=== PATIENT | male | born 1990 | race African-American/Black ===

== ENCOUNTER 2020-01-09 17:00 | Emergency (ER) | payer MEDICAID ==
[~2020-01-09] VITALS: Ht 170.2 cm; Wt 69.0 kg
[2020-01-09 17:07] VITALS: BP 116/80
[2020-01-09] MEDS ORDERED: FLUORESCEIN SODIUM 1MG/STRIP RIGHTEYE ONE (18:00)
[2020-01-09] MEDS ORDERED: TETRACAINE 0.5% OPHTH DROPS 4ML RIGHTEYE ONE (18:00)
== END 2020-01-09 19:03 | disposition home or self-care (01) ==
LOC: ER 17:00
DX: H57.11 Ocular pain, right eye (principal)
CPT/HCPCS: 99283

== ENCOUNTER 2020-10-12 00:26 | Emergency (ER) | payer MEDICAID ==
[~2020-10-12] VITALS: Ht 170.2 cm; Wt 68.0 kg
[2020-10-12 00:29] VITALS: BP 130/74
== END 2020-10-12 01:55 | disposition left against medical advice (07) ==
LOC: ER 00:30
DX: F41.9 Anxiety disorder, unspecified (principal)
CPT/HCPCS: 99283